=== PATIENT | female | born 1980 | race Caucasian/White ===

== ENCOUNTER 2024-03-29 18:20 | Emergency (ER) | payer SELFPAY ==
[~2024-03-29] VITALS: Ht 160 cm; Wt 84.1 kg
[2024-03-29] MEDS ORDERED: ADDERALL 30 MG30 MG PO (18:49)
[2024-03-29] MEDS ORDERED: IBU-200200 M1 PO (18:49)
[2024-03-29] MEDS ORDERED: diphenhydrAMINE 50 MG/ML 1 ML VIAL IV ONE (19:15)
[2024-03-29] MEDS ORDERED: Ketorolac 30 MG/ML VIAL IV ONE (19:15)
[2024-03-29] MEDS ORDERED: diphenhydrAMINE 50 MG/ML 1 ML VIAL IM ONE (19:30)
[2024-03-29] MEDS ORDERED: Ketorolac 30 MG/ML VIAL IM ONE (19:30)
[2024-03-29] MEDS ORDERED: Home Ketorolac 10 MG #4 TABS/PACK PO ONE (20:15)
[2024-03-29] MEDS ORDERED: KETOROLAC10 MG PO (20:19)
[2024-03-29] MEDS ORDERED: ZOFRAN ODT4 MG PO (20:19)
[2024-03-29 20:20] VITALS: BP 134/88
== END 2024-03-29 20:20 | disposition home or self-care (01) ==
LOC: ED 18:20
DX: G43.909 Migraine, unspecified, not intractable, without status migrainosus (principal)
CPT/HCPCS: J0780; J1200; J1885

== ENCOUNTER 2024-04-06 09:59 | Emergency (ER) | payer SELFPAY ==
[~2024-04-06] VITALS: Ht 154.9 cm; Wt 81.8 kg
[~2024-04-06 09:59] MED LIST: ADDERALL 30 MG30 MG PO; IBU-200200 M1 PO; KETOROLAC10 MG PO; ZOFRAN ODT4 MG PO
[2024-04-06] MEDS ORDERED: acetaZOLAMIDE 250 MG TAB PO ONE (10:45)
[2024-04-06] MEDS ORDERED: Ketorolac 30 MG/ML VIAL IM ONE (10:45)
[2024-04-06] MEDS ORDERED: DIAMOX 250MG250 MG PO (12:19)
[2024-04-06 12:49] VITALS: BP 119/75
== END 2024-04-06 12:50 | disposition home or self-care (01) ==
LOC: ED 09:59
DX: G43.909 Migraine, unspecified, not intractable, without status migrainosus (principal); G93.2 Benign intracranial hypertension
CPT/HCPCS: J1885